=== PATIENT | female | born 1985 | race African-American/Black ===

== ENCOUNTER 2021-12-21 08:29 | Emergency (ER) | payer BC, OTHER ==
[~2021-12-21] VITALS: Ht 167.6 cm; Wt 113.4 kg
[2021-12-21 08:45] VITALS: BP 131/98
== END 2021-12-21 10:23 | disposition left against medical advice (07) ==
LOC: ER 08:29
DX: R10.9 Unspecified abdominal pain (principal); R11.10 Vomiting, unspecified; Z53.21 Procedure and treatment not carried out due to patient leaving prior to being seen by health care provider